=== PATIENT | male | born 1995 | race Caucasian/White ===

== ENCOUNTER 2019-11-13 15:59 | Emergency (ER) | payer OTHER, BC, SELFPAY ==
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
[2019-11-13 15:59] VITALS: BP 144/98; PULSE 123; RESP 14; TEMP 36.9; O2SAT 99
[2019-11-13 16:04] VITALS: RESP 14; O2SAT 99
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
[2019-11-13 16:16] LABS: Basophils Absolute Auto 0.1 K/mm3 (0.0-0.1); Basophils Percent Auto 0.5 % (0.2-1.2); Eosinophils Absolute Auto 0.1 K/mm3 (0-0.3); Eosinophils Percent Auto 0.4 % (0-4.4); Hematocrit 46.9 % (42.0-52.0); Hemoglobin 15.6 g/dL (14.0-18.0); Immature Granulocyte Absolute 0.05 K/mm3 (0.00-0.031); Immature Granulocyte Percent A 0.4 % (0-0.5); Lymphocytes Percent Auto 29.7 % (18.3-44.2); Mean Corpuscular HGB Conc 33.3 g/dl (32-36); Mean Corpuscular Hemoglobin 28.8 pg (26-34); Mean Corpuscular Volume 86.5 fl (80-100); Mean Platelet Volume 9.8 fl (7.4-10.4); Monocytes Absolute Auto 0.6 K/mm3 (0.1-0.6); Monocytes Percent Auto 4.4 % (2.6-8.5); Neutrophils Absolute Auto 8.5 K/mm3 (1.3-6.7); Neutrophils Percent Auto 64.6 % (45.5-73.1); Platelet Count Result 318 k/mm3 (150-375); Red Blood Count 5.42 M/mm3 (4.6-6.20); Red Cell Distribution Width 13.5 % (11.5-14.5); White Blood Count 13.1 K/mm3 (4.5-10.0)
[2019-11-13] MEDS: MORPHINE SULFATE 4 MG/ML INJ IV PUSH (16:28)
[2019-11-13 16:40] LABS: Albumin Level 5.3 g/dL (3.5-5.1); Alkaline Phosphatase 113 U/L (38-126); Aspartate Amino Transferase 64 U/L (17-59); Bilirubin,Total 0.8 mg/dL (0.2-1.3); Blood Urea Nitrogen 8 mg/dL (9-20); Calcium 10.2 mg/dL (8.4-10.2); Carbon Dioxide 22 mmol/L (22-30); Chloride 102 mmol/L (98-107); Estimated CRCL calculation 120 ml/min; Estimated Glomerular Filt Rate > 60; Glucose 124 mg/dL (75-110); Lipase 108 U/L (23-300); Potassium 3.3 mmol/L (3.4-5.0); Sodium 138 mmol/L (137-145)
[2019-11-13 17:45] LABS: Alanine Aminotransferase 50 U/L (4-50)
[2019-11-13 17:59] VITALS: BP 142/88; PULSE 105; RESP 16; O2SAT 97
[2019-11-13 19:30] VITALS: BP 132/74; PULSE 74; RESP 18; TEMP 36.6; O2SAT 98
== END 2019-11-13 23:00 | disposition home or self-care (01) ==
PROVIDERS: Emergency Provider Emergency Medicine
DX: R51 Headache (principal); E88.09 Other disorders of plasma-protein metabolism, not elsewhere classified; V48.5XXA Car driver injured in noncollision transport accident in traffic accident, initial encounter
CPT/HCPCS: 36415; 70450; 72125; 80053; 83690; 85025; 96374; 99284; J2270